=== PATIENT | female | born 1990 | race Caucasian/White ===

== ENCOUNTER 2017-01-21 20:21 | Emergency (ER) | payer OTHER ==
[~2017-01-21] VITALS: Ht 167.6 cm; Wt 67.2 kg
[~2017-01-21 20:21] MED LIST: AMPH30CA3 PO; LISD70CA PO
[2017-01-21 20:24] VITALS: TEMP 36.6; Ht 167.6 cm; Wt 67.2 kg
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
[2017-01-21] MEDS ORDERED: DEXM20CA PO (21:15)
[2017-01-21 21:52] LABS: URINE APPEARANCE CLEAR (CLEAR); URINE BILIRUBIN NEG (NEG); URINE COLOR YELLOW; URINE NITRITE NEG (NEG); URINE PH 7.5 (4.5-7.5); URINE SPECIFIC GRAVITY 1.018 (1.000-1.030); UROBILINOGEN NEG (NEG); ZZUR CULT IF INDIC CLEAN CATCH NO
[2017-01-21 21:52] LABS: HEMATOCRIT 37.9 % (37-47); MEAN CELL VOLUME 87.7 fL (80-100); MEAN CORPUSCULAR HEMOGLOBIN 30.6 pg (25-34); MEAN CORPUSCULAR HGB CONC 34.8 g/dl (32-36); MEAN PLATELET VOLUME 9.2 fL (7.4-10.4); PLATELET COUNT 317 K/uL (130-400); RED BLOOD COUNT 4.32 M/uL (4.2-5.4); WHITE BLOOD COUNT 8.34 K/uL (4.8-10.8)
[2017-01-21 21:54] LABS: MANUAL MICROSCOPIC REQUIRED? NO; REVIEW REQ? NO
[2017-01-21 22:10] LABS: BUN/CREATININE RATIO 14.7 (10-20); CALCIUM 9.9 mg/dl (8.5-10.1); CREATININE 0.74 mg/dl (0.60-1.20); POTASSIUM 3.7 mmol/L (3.5-5.1)
[2017-01-21 22:15] LABS: PREG INTERNAL NEGATIVE QC NEG CLEAR BACKGROUND; PREG INTERNAL POSITIVE QC POS CONTROL LINE
[2017-01-21 22:16] LABS: ACETAMINOPHEN < 2 ug/ml (10-30)
[2017-01-21 22:17] LABS: BENZODIAZEPINE, URINE NEG (NEG); COCAINE,URINE NEG (NEG); PHENCYCLIDINE, URINE NEG (NEG)
[2017-01-21 22:20] LABS: ALB/GLOB RATIO 1.2 (0.9-2); THYROID STIMULATING HORMONE 0.855 uIu/ml (0.300-4.500)
[2017-01-21 22:29] VITALS: BP 134/74; PULSE 85; O2SAT 98
== END 2017-01-21 22:30 | disposition home or self-care (01) ==
LOC: C.EDB 20:22
DX: R45.851 Suicidal ideations (principal); F41.9 Anxiety disorder, unspecified; F90.9 Attention-deficit hyperactivity disorder, unspecified type; L40.9 Psoriasis, unspecified; F17.210 Nicotine dependence, cigarettes, uncomplicated; Z79.899 Other long term (current) drug therapy

== ENCOUNTER 2019-01-08 14:56 | Inpatient (IN) ==
--- OUTSIDE RECORDS SUMMARY | 2019-01-08 15:00 | External Medical Summary | Continuity of Care Document ---
:1990 Author Name Feroz Noble Address Unavailable Unavailable , Care Team Providers Name Role Phone [email or web address] Noble, Himanshu Unavailable Unavailable Unavailable Unavailable Unavailable Problems Anxiety (300.00) (F41.9) Depression (311) (F32.9) Episode of shaking (781.0) (R25.1) Allergies and Adverse Reactions No Known Drug Allergies (Allergy) Medications Wellbutrin XL 300 MG Oral Tablet Extende d Release 24 Hour; TAKE 1 TABLET DAILY WITH A 150 MG TABLET Start: 28-Mar-2015 Quantity: 90 Refills: 0 buPROPion HCl ER (XL) 150 MG Oral Tablet Extended Release 24 Hour; TAKE 1 TABLET DAILY WITH THE 300 MG TABLET DEWAYNE Fontenot Start: 28-Mar-2015 Quantity: 30 Refills: 1 Strattera 25 MG Oral Capsule; TAKE 1 CAPSULE DAILY. Start: 28-Mar-2015 Refills: 0 Betamethasone Dipropionate 0.05 % Dog Food Dough Mixer al Ointment; APPLY SPARINGLY TO AFFECTED AREA(S) TWICE DAILY Start: 28-Mar-2015 Refills: 0 Procedures Procedures not documented Immunizations Immunizations not documented Family History Father Family history of hypertension (V17.49) (Z82.49) Status: Act patti Unknown Family Member Family history of Drug abuse (305.90) Status: Active Co mments: Family History (F19.10) Family history of alcohol abuse (V61.41) Status: Active Comments: Family History (Z81.1) Social History - Smoking Status Current some day smoker Plan of Treatment Planned Observations Planned Goals not documented Results No Known Results Results not documented
[2019-01-08] MEDS ORDERED: SODIUM CHLORIDE 0.9% 1000ML 1,000 ML IV ONE (15:15)
[2019-01-08 15:52] LABS: Basophils # (auto) 0.02 K/uL (0-0.2); Basophils % (auto) 0.2 %; Eosinophils # (auto) 0.03 K/uL (0-0.5); Eosinophils % (auto) 0.3 %; Hematocrit (blood only) 36.4 % (37-47); Hemoglobin 12.6 g/dL (12.0-16.0); Immature Granulocytes # (auto) 0.03 K/uL (0.00-0.02); Immature Granulocytes % (auto) 0.3 %; Lymphocytes # (auto) 1.33 K/uL (1.2-3.4); Lymphocytes % (auto) 13.2 %; Mean Corpuscular Hgb Conc 34.6 g/dL (32-36); Mean Platelet Volume 8.8 fL (7.4-10.4); Monocytes # (auto) 0.63 K/uL (0.11-0.59); Monocytes % (auto) 6.2 %; Neutrophils # (auto) 8.06 K/uL (1.4-6.5); Neutrophils % (auto) 79.8 %; Platelet Count 274 K/uL (130-400); RDW Coefficient of Variation 14.6 % (11.5-14.5); RDW Standard Deviation 49.2 fL (36.4-46.3)
[2019-01-08 15:57] LABS: Appearance Urine Clear (Clear); Bilirubin Urine Negative (Negative); Blood Urine Negative (Negative); Color Urine Yellow; Glucose Urine UA Negative (Negative); Ketones Urine Trace (Negative); Leukocyte Esterase Urine Negative (Negative); Nitrite Urine Negative (Negative); Protein Urine Negative (Negative); Specific Gravity Urine 1.015 (1.000-1.030); Urobilinogen Urine Negative (Negative)
[2019-01-08 16:12] LABS: Albumin Level 3.8 gm/dl (3.4-5.0); BUN Creatinine Ratio 14.9 (10-20); Calcium 8.5 mg/dl (8.5-10.1); Est GFR (African American) 138.6; Est GFR (Non-African American) 119.6; Phosphorus 2.1 mg/dl (2.5-4.9); Potassium 3.7 mmol/L (3.5-5.1)
[2019-01-08 16:18] LABS: Pregnancy Test, Serum Negative (Negative)
[2019-01-08 16:24] LABS: Albumin Globulin Ratio 1.1 (0.9-2); Bilirubin,Total 0.4 mg/dl (0.2-1); Globulin 3.4 gm/dl (2.5-4.0); Total Protein 7.2 gm/dl (6.4-8.2)
[2019-01-08 16:26] LABS: Amphetamines+Metham, Urine Pos (Neg); Barbiturates, Urine Neg (Neg); Benzodiazepine, Urine Neg (Neg); Cocaine, Urine Neg (Neg); MDMA (Ecstacy), Urine Pos (Neg); Methadone, Urine Neg (Neg); Opiate, Urine Neg (Neg); Phencyclidine, Urine Neg (Neg)
--- NOTE | 2019-01-08 16:54 | CT Scan Report ---
CT head/brain wo con CT DOSE: 537.48 mGy.cm HISTORY: Mental status change. Syncope. syncope TECHNIQUE: Multiaxial CT images of the head were performed without the use of intravenous contrast. A dose lowering technique was utilized adhering to the principles of ALARA. Comparison: None. Findings: The paranasal sinuses and mastoid air cells are clear. The calvarium and skull base are int act. The ventricles and sulci are within normal limits. There is no mass, hematoma, midline shift, or acute infarct. Impression: No acute intracranial abnormality. The above report was generated using voice recognition software. It may contain grammatical, syntax or spelling errors. Electronically signed by: Hayder Ashraf M.D. 01/08/2019 4:52 PM
[2019-01-08] MEDS ORDERED: MULTI-VITAMIN INFUSION 10 ML, THIAMINE HCL 100 MG, FOLIC ACID 1 MG in SODIUM CHLORIDE 0... IV STA (18:44)
[2019-01-08] MEDS ORDERED: LORazepam 1 MG/2 ML VIAL IV STA (18:44)
[2019-01-08] MEDS ORDERED: POT PHOSPHATE MONOBASIC W/ SOD TAB PO STA (18:48)
--- NOTE | 2019-01-08 20:06 | Emergency Department Note ---
Entered by Miranda Mauricio acting as a scribe for Clyde Henderson MD History of Present Illness General Chief complaint: Seizure Time Seen by Provider: 01/08/19 15:09 Source: patient History of Present Illness Provider complaint: Syncope Onset (ago): hour(s) 1 Location: head Pain Consistency: + other (Episodic) Maximum Pain Intensity: 0 Quality: + other (syncope) Associated symptoms: + denies other symptoms (Diarrhea), + confusion and + headaches (Resolved); no fever/chills and no nausea/vomiting The patient is a 28 year old female who presents to the Emergency Room with complaints of an episode of syncope that occurred about 1 hour ago. The patient reports that she went to see her probation officers and as she got up from the chair in the waiting room, she fainted. The [employer] senior officer reports he caught the patient as she fell and laid the patient on her side. The probation officers report she was unconscious for about 1-2 minutes and could not answer simple questions. The patient states that she had recently been arrested for a DUI and was feeling anxious after failing her alcohol test. The patient mentioned she has been drinking a half a bottle of liquor a day this summer. The patient reports she had a headache in the ambulance but it has now been resolved. The patient denies any N/V/D, fever, or chills. The patient mentioned this type of episode has happened before but she has never seen a doctor about it. The patient reports she has been on probation for 6 years for falsifying her Adderall prescription. Home Medications Home Medications Medication Instructions Recorded Confirmed Type betamethasone, augmented 1 applic TOPICAL DAILY 01/08/19 01/08/19 History bupropion HCl [Wellbutrin XL] 150 mg PO DAILY 01/08/19 01/08/19 History dextroamphetamine-amphetamine 30 mg PO QAM 01/08/19 01/08/19 History sertraline 100 mg PO DAILY 01/08/19 01/08/19 History Allergies Allergy/AdvReac Type Severity Reaction Status Date / Time No Known Allergies Allergy Unverified 11/09/12 11:05 Past Med/Surg History Medical History Rash (Acute) Family History Other No pertinent family history in first degree relatives Social History Preferred Language: Greenlandic Communication Ability: Effective Chain Puller Required: No Beliefs That Will Affect Care: None Current Living Situation: Other Current Living Situation Comment: roomates Feels Safe at Home: Yes Safety Concerns: Feels Safe At This Time Smoking Status: Current every day smoker Tobacco Type: e-cigarettes ; Do You Dip or Chew Tobacco: No ; Second Hand Exposure: Yes ; Tobacco Cessation Education Requested by Patient: No Hx Alcohol Use: Yes Alcohol type: hard liquor Review of Systems See HPI for pertinent positives & negatives. and A total of 10 systems reviewed and were otherwise negative Physical Exam Vital Signs Vital Signs - 24 hr 01/08/19 14:59 01/08/19 15:01 01/08/19 15:09 Temperature 36.5 C Temperature Source Oral Sepsis Recent Fever Within 48 Hours No Sepsis New/Unexplained Change in Mental Status No Sepsis Action Taken by Nursing No Action Required Pulse Rate 105 H 99 H 96 H Pulse Rate [Apical] Pulse Rate from SpO2 Sensor 106 H 101 H Pulse Rhythm Regular Pulse Rhythm [Apical] Respiratory Rate 33 H 17 16 Respiratory Effort / Characteristics Non-Labored Spontaneous Respiratory Depth Normal Respiratory Pattern Regular Blood Pressure 128/86 128/86 Blood Pressure [Right Arm] Blood Pressure Mean 100 100 Blood Pressure Mean [Right Arm] Pulse Oximetry 97 99 100 Oxygen Delivery Method Room Air 01/08/19 15:10 01/08/19 15:20 01/08/19 15:30 Temperature Temperature Source Sepsis Recent Fever Within 48 Hours Sepsis New/Unexplained Change in Mental Status Sepsis Action Taken by Nursing Pulse Rate 99 H 107 H 94 H Pulse Rate [Apical] Pulse Rate from SpO2 Sensor 101 H 110 H 96 H Pulse Rhythm Pulse Rhythm [Apical] Respiratory Rate 17 14 18 Respiratory Effort / Characteristics Respiratory Depth Respiratory Pattern Blood Pressure Blood Pressure [Right Arm] Blood Pressure Mean Blood Pressure Mean [Right Arm] Pulse Oximetry 99 99 97 Oxygen Delivery Method 01/08/19 15:36 01/08/19 15:40 01/08/19 15:50 Temperature Temperature Source Sepsis Recent Fever Within 48 Hours Sepsis New/Unexplained Change in Mental Status Sepsis Action Taken by Nursing Pulse Rate 108 H 102 H Pulse Rate [Apical] Pulse Rate from SpO2 Sensor 108 H 100 H Pulse Rhythm Pulse Rhythm [Apical] Respiratory Rate 18 21 Respiratory Effort / Characteristics Respiratory Depth Respiratory Pattern Blood Pressure Blood Pressure [Right Arm] Blood Pressure Mean Blood Pressure Mean [Right Arm] Pulse Oximetry 98 99 99 Oxygen Delivery Method Room Air 01/08/19 16:00 01/08/19 16:10 01/08/19 16:20 Temperature Temperature Source Sepsis Recent Fever Within 48 Hours Sepsis New/Unexplained Change in Mental Status Sepsis Action Taken by Nursing Pulse Rate 98 H 110 H 104 H Pulse Rate [Apical] Pulse Rate from SpO2 Sensor Pulse Rhythm Pulse Rhythm [Apical] Respiratory Rate 13 21 21 Respiratory Effort / Characteristics Respiratory Depth Respiratory Pattern Blood Pressure Blood Pressure [Right Arm] Blood Pressure Mean Blood Pressure Mean [Right Arm] Pulse Oximetry Oxygen Delivery Method 01/08/19 16:30 01/08/19 16:40 01/08/19 16:54 Temperature Temperature Source Sepsis Recent Fever Within 48 Hours Sepsis New/Unexplained Change in Mental Status Sepsis Action Taken by Nursing Pulse Rate 99 H 99 H 97 H Pulse Rate [Apical] Pulse Rate from SpO2 Sensor Pulse Rhythm Pulse Rhythm [Apical] Respiratory Rate 15 19 21 Respiratory Effort / Characteristics Respiratory Depth Respiratory Pattern Blood Pressure Blood Pressure [Right Arm] Blood Pressure Mean Blood Pressure Mean [Right Arm] Pulse Oximetry Oxygen Delivery Method 01/08/19 17:00 01/08/19 17:08 01/08/19 17:10 Temperature Temperature Source Sepsis Recent Fever Within 48 Hours Sepsis New/Unexplained Change in Mental Status Sepsis Action Taken by Nursing Pulse Rate 102 H 89 88 Pulse Rate [Apical] 100 H Pulse Rate from SpO2 Sensor 105 H 93 H 88 Pulse Rhythm Pulse Rhythm [Apical] Regular Respiratory Rate 15 20 24 Respiratory Effort / Characteristics Non-Labored Spontaneous Respiratory Depth Normal Respiratory Pattern Regular Blood Pressure 132/84 Blood Pressure [Right Arm] 132/84 Blood Pressure Mean 100 Blood Pressure Mean [Right Arm] 100 Pulse Oximetry 99 99 98 Oxygen Delivery Method Room Air 01/08/19 17:20 01/08/19 17:24 01/08/19 17:30 Temperature Temperature Source Sepsis Recent Fever Within 48 Hours Sepsis New/Unexplained Change in Mental Status Sepsis Action Taken by Nursing Pulse Rate 106 H 89 108 H Pulse Rate [Apical] Pulse Rate from SpO2 Sensor 106 H 88 107 H Pulse Rhythm Pulse Rhythm [Apical] Respiratory Rate 20 24 19 Respiratory Effort / Characteristics Respiratory Depth Respiratory Pattern Blood Pressure 132/84 119/80 Blood Pressure [Right Arm] Blood Pressure Mean 100 93 Blood Pressure Mean [Right Arm] Pulse Oximetry 99 98 100 Oxygen Delivery Method 01/08/19 17:40 01/08/19 17:50 01/08/19 18:00 Temperature Temperature Source Sepsis Recent Fever Within 48 Hours Sepsis New/Unexplained Change in Mental Status Sepsis Action Taken by Nursing Pulse Rate 98 H 104 H 97 H Pulse Rate [Apical] Pulse Rate from SpO2 Sensor 93 H 103 H 95 H Pulse Rhythm Pulse Rhythm [Apical] Respiratory Rate 21 20 14 Respiratory Effort / Characteristics Respiratory Depth Respiratory Pattern Blood Pressure 128/89 Blood Pressure [Right Arm] Blood Pressure Mean 102 Blood Pressure Mean [Right Arm] Pulse Oximetry 98 100 100 Oxygen Delivery Method 01/08/19 18:01 01/08/19 18:10 01/08/19 18:20 Temperature Temperature Source Sepsis Recent Fever Within 48 Hours Sepsis New/Unexplained Change in Mental Status Sepsis Action Taken by Nursing Pulse Rate 99 H 93 H 83 Pulse Rate [Apical] Pulse Rate from SpO2 Sensor 94 H 91 H 82 Pulse Rhythm Pulse Rhythm [Apical] Respiratory Rate 20 20 16 Respiratory Effort / Characteristics Respiratory Depth Respiratory Pattern Blood Pressure Blood Pressure [Right Arm] Blood Pressure Mean Blood Pressure Mean [Right Arm] Pulse Oximetry 99 100 98 Oxygen Delivery Method 01/08/19 18:30 01/08/19 18:40 01/08/19 18:50 Temperature Temperature Source Sepsis Recent Fever Within 48 Hours Sepsis New/Unexplained Change in Mental Status Sepsis Action Taken by Nursing Pulse Rate 94 H 107 H 96 H Pulse Rate [Apical] Pulse Rate from SpO2 Sensor 93 H 109 H 94 H Pulse Rhythm Pulse Rhythm [Apical] Respiratory Rate 15 32 H 19 Respiratory Effort / Characteristics Respiratory Depth Respiratory Pattern Blood Pressure 132/97 Blood Pressure [Right Arm] Blood Pressure Mean 108 Blood Pressure Mean [Right Arm] Pulse Oximetry 100 100 98 Oxygen Delivery Method 01/08/19 19:00 01/08/19 19:01 01/08/19 19:30 Temperature Temperature Source Sepsis Recent Fever Within 48 Hours Sepsis New/Unexplained Change in Mental Status Sepsis Action Taken by Nursing Pulse Rate 91 H 104 H 106 H Pulse Rate [Apical] Pulse Rate from SpO2 Sensor 93 H 102 H 105 H Pulse Rhythm Pulse Rhythm [Apical] Respiratory Rate 22 22 27 H Respiratory Effort / Characteristics Respiratory Depth Respiratory Pattern Blood Pressure 149/98 H 146/86 H Blood Pressure [Right Arm] Blood Pressure Mean 115 106 Blood Pressure Mean [Right Arm] Pulse Oximetry 99 99 99 Oxygen Delivery Method 01/08/19 20:00 01/08/19 20:01 01/08/19 20:30 Temperature Temperature Source Sepsis Recent Fever Within 48 Hours Sepsis New/Unexplained Change in Mental Status Sepsis Action Taken by Nursing Pulse Rate 82 92 H 88 Pulse Rate [Apical] Pulse Rate from SpO2 Sensor Pulse Rhythm Pulse Rhythm [Apical] Respiratory Rate 22 20 Respiratory Effort / Characteristics Respiratory Depth Respiratory Pattern Blood Pressure 148/83 H 138/87 Blood Pressure [Right Arm] Blood Pressure Mean 104 104 Blood Pressure Mean [Right Arm] Pulse Oximetry Oxygen Delivery Method 01/08/19 21:00 Temperature Temperature Source Sepsis Recent Fever Within 48 Hours Sepsis New/Unexplained Change in Mental Status Sepsis Action Taken by Nursing Pulse Rate 80 Pulse Rate [Apical] Pulse Rate from SpO2 Sensor Pulse Rhythm Pulse Rhythm [Apical] Respiratory Rate 16 Respiratory Effort / Characteristics Respiratory Depth Respiratory Pattern Blood Pressure 150/65 H Blood Pressure [Right Arm] Blood Pressure Mean 93 Blood Pressure Mean [Right Arm] Pulse Oximetry Oxygen Delivery Method GENERAL: Awake, alert, anxious-appearing, in no distress HENT: Normocephalic, atraumatic. Oropharynx with dry mucous membranes and otherwise unremarkable. EYES: Normal conjunctiva. Sclera non-icteric. EOMI. No nystamgus. PEARRL. NECK: Supple. No nuchal rigidity. FROM. No JVD. RESPIRATORY: Clear to auscultation bilaterally. CARDIAC: Regular rate, normal rhythm. Extremities warm and well perfused. Pulses equal. ABDOMEN: Soft, non-distended. No tenderness to palpation. No rebound or guarding. No masses. RECTAL: Deferred. MUSCULOSKELETAL: Chest examination reveals no tenderness. The back is symm etrical on inspection without obvious abnormality. There is no CVA tenderness to palpation. No joint edema. LOWER EXTREMITIES: Calves are equal size bilaterally and non-tender. No edema. No discoloration. NEURO: Normal sensorium. No sensory or motor deficits noted. Mildly tremulous. 5/5 strength and SILT x 4 extremities. Cerebellar function intact including [id number], alternating palms, [id number]. SKIN: No rash or jaundice noted. Course 1557: Past medical records reviewed. The patient was evaluated in room B03. A complete history and physical exam was performed. 1735: Upon reevaluation, the patient is resting comfortably. I discussed findings and results with her. She verbalized agreement of the treatment plan. 1745: I spoke with Dr. Alem Archuleta Hospitalist about the patient's case. He will accept the patient for further evaluation. Consultations Consultation #1: I spoke with Dr. Alem Archuleta Hospitalist about the patient's case. He will accept the patient for further evaluation. Time: 17:45 Administered Medications Chlordiazepoxide HCl (Librium) 50 mg PO Q6H MERYL; Taper Stop: 01/11/19 23:59 Last Admin: 01/08/19 23:24 Dose: 50 mg Documented by: [id number] Sodium Chloride (Nss 1000ml) 1,000 mls @ 125 mls/hr IV .Q8H MERYL Stop: 02/07/19 22:30 Last Admin: 01/08/19 23:24 Dose: 125 mls/hr Documented by: [id number] Lorazepam (Ativan) 1 mg in 2 mls @ 2 mls/min IV UD PRN; Protocol PRN Reason: EtOH Withdrawl AWSS Score 6,7 Stop: 02/07/19 22:30 Last Admin: 01/08/19 23:25 Dose: 2 mls/min Documented by: [id number] Discontinued Medications Sodium Chloride (Nss 1000ml) 1,000 mls @ 999 mls/hr IV .Q1H1M ONE Stop: 01/08/19 16:15 Last Infusion: 01/08/19 16:59 Dose: 0 mls/hr Documented by: [id number] Admin: 01/08/19 15:57 Dose: 999 mls/hr Documented by: [id number] Multivitamins 10 ml/ Thiamine HCl 100 mg/ Folic Acid 1 mg/Sodium Chloride 1,011.2 mls @ 1,011.2 mls/hr IV .Q1H STA Stop: 01/08/19 19:43 Last Infusion: 01/08/19 20:48 Dose: 0 mls/hr Documented by: [id number] Admin: 01/08/19 19:46 Dose: 1,011.2 mls/hr Documented by: [id number] Lorazepam (Ativan) 1 mg in 2 mls @ 2 mls/min IV NOW STA Stop: 01/08/19 18:45 Last Admin: 01/08/19 18:55 Dose: 2 mls/min Documented by: [id number] Potassium Phosphate (Phospha 250 Neutral 155-852-130 Mg) 2 tab PO NOW STA Stop: 01/08/19 18:49 Last Admin: 01/08/19 19:06 Dose: 2 tab Documented by: [id number] Medical Decision Making Differential Diagnosis Differential diagnosis includes etiologies such as infection, hypoglycemia, electrolyte abnormalities, cardiac sources, intracerebral event, trauma, toxi cologic, neurologic, as well as others were entertained. Medical Records Attestation: I reviewed the patient's medical records. Home Medications Current Medication List: was personally reviewed by me Laboratory Data Attestation: I reviewed the patient's lab results. Result diagrams: 01/08/19 15:38 01/08/19 15:38 Lab Results 01/08/19 01/08/19 01/08/19 Range/Units 15:38 15:38 15:38 WBC 10.10 (4.8-10.8) K/uL RBC 4.00 L (4.2-5.4) M/uL Hgb 12.6 (12.0-16.0) g/dL Hct 36.4 L (37-47) % MCV 91.0 (80-100) fL MCH 31.5 (25-34) pg MCHC 34.6 (32-36) g/dL RDW Std Deviation 49.2 H (36.4-46.3) fL RDW Coeff of Matt 14.6 H (11.5-14.5) % Plt Count 274 (130-400) K/uL MPV 8.8 (7.4-10.4) fL Immature Gran % (Auto) 0.3 % Neut % (Auto) 79.8 % Lymph % (Auto) 13.2 % Dickens % (Auto) 6.2 % Eos % (Auto) 0.3 % Baso % (Auto) 0.2 % Immature Gran # (Auto) 0.03 H (0.00-0.02) K/uL Neut # (Auto) 8.06 H (1.4-6.5) K/uL Lymph # (Auto) 1.33 (1.2-3.4) K/uL Dickens # (Auto) 0.63 H (0.11-0.59) K/uL Eos # (Auto) 0.03 (0-0.5) K/uL Baso # (Auto) 0.02 (0-0.2) K/uL Sodium Cancelled 136 Potassium Cancelled 3.7 Chloride Cancelled 101 Carbon Dioxide Cancelled 26 Anion Gap Cancelled 9.0 BUN Cancelled 10 Creatinine Cancelled 0.70 Est Cr Clr Drug Dosing Cancelled 114.0 Est GFR ( Amer) Cancelled 138.6 Est GFR (Non-Af Amer) Cancelled 119.6 BUN/Creatinine Ratio Cancelled 14.9 Glucose Cancelled 96 Calcium Cancelled 8.5 Phosphorus 2.1 L (2.5-4.9) mg/dl Magnesium 2.0 (1.8-2.4) mg/dl Total Bilirubin Cancelled 0.4 AST Cancelled 43 H ALT Cancelled 72 Alkaline Phosphatase Cancelled 65 Total Protein Cancelled 7.2 Albumin Cancelled 3.8 Globulin Cancelled 3.4 Albumin/Globulin Ratio Cancelled 1.1 Lipase Cancelled 95 TSH 1.290 (0.300-4.500) uIu/ml HCG, Qual (Negative) Urine Color Urine Appearance (Clear) Urine pH (4.5-7.5) Ur Specific Manning (1.000-1.030) Urine Protein (Negative) Urine Glucose (UA) (Negative) Urine Ketones (Negative) Urine Blood (Negative) Urine Nitrite (Negative) Urine Bilirubin (Negative) Urine Urobilinogen (Negative) Ur Leukocyte Esterase (Negative) Urine Opiates Screen (Neg) Ur Methadone, Qual (Neg) Urine Barbiturates (Neg) Ur Phencyclidine (PCP) (Neg) U Amphetamin/Meth Scrn (Neg) MDMA (Ecstasy) Screen (Neg) U Benzodiazepines Scrn (Neg) Ur Cocaine Metabolite (Neg) U Marijuana (THC) Screen (Neg) Ethyl Alcohol mg/dL (0-3) mg/dl 01/08/19 01/08/19 01/08/19 Range/Units 15:38 15:38 15:39 WBC (4.8-10.8) K/uL RBC (4.2-5.4) M/uL Hgb (12.0-16.0) g/dL Hct (37-47) % MCV (80-100) fL MCH (25-34) pg MCHC (32-36) g/dL RDW Std Deviation (36.4-46.3) fL RDW Coeff of Matt (11.5-14.5) % Plt Count (130-400) K/uL MPV (7.4-10.4) fL Immature Gran % (Auto) % Neut % (Auto) % Lymph % (Auto) % Dickens % (Auto) % Eos % (Auto) % Baso % (Auto) % Immature Gran # (Auto) (0.00-0.02) K/uL Neut # (Auto) (1.4-6.5) K/uL Lymph # (Auto) (1.2-3.4) K/uL Dickens # (Auto) (0.11-0.59) K/uL Eos # (Auto) (0-0.5) K/uL Baso # (Auto) (0-0.2) K/uL Sodium Potassium Chloride Carbon Dioxide Anion Gap BUN Creatinine Est Cr Clr Drug Dosing Est GFR ( Amer) Est GFR (Non-Af Amer) BUN/Creatinine Ratio Glucose Calcium Phosphorus (2.5-4.9) mg/dl Magnesium (1.8-2.4) mg/dl Total Bilirubin AST ALT Alkaline Phosphatase Total Protein Albumin Globulin Albumin/Globulin Ratio Lipase TSH (0.300-4.500) uIu/ml HCG, Qual Negative (Negative) Urine Color Urine Appearance (Clear) Urine pH (4.5-7.5) Ur Specific Manning (1.000-1.030) Urine Protein (Negative) Urine Glucose (UA) (Negative) Urine Ketones (Negative) Urine Blood (Negative) Urine Nitrite (Negative) Urine Bilirubin (Negative) Urine Urobilinogen (Negative) Ur Leukocyte Esterase (Negative) Urine Opiates Screen Neg (Neg) Ur Methadone, Qual Neg (Neg) Urine Barbiturates Neg (Neg) Ur Phencyclidine (PCP) Neg (Neg) U Amphetamin/Meth Scrn Pos H (Neg) MDMA (Ecstasy) Screen Pos H (Neg) U Benzodiazepines Scrn Neg (Neg) Ur Cocaine Metabolite Neg (Neg) U Marijuana (THC) Screen Neg (Neg) Ethyl Alcohol mg/dL < 3.0 (0-3) mg/dl 01/08/19 Range/Units 15:39 WBC (4.8-10.8) K/uL RBC (4.2-5.4) M/uL Hgb (12.0-16.0) g/dL Hct (37-47) % MCV (80-100) fL MCH (25-34) pg MCHC (32-36) g/dL RDW Std Deviation (36.4-46.3) fL RDW Coeff of Matt (11.5-14.5) % Plt Count (130-400) K/uL MPV (7.4-10.4) fL Immature Gran % (Auto) % Neut % (Auto) % Lymph % (Auto) % Dickens % (Auto) % Eos % (Auto) % Baso % (Auto) % Immature Gran # (Auto) (0.00-0.02) K/uL Neut # (Auto) (1.4-6.5) K/uL Lymph # (Auto) (1.2-3.4) K/uL Dickens # (Auto) (0.11-0.59) K/uL Eos # (Auto) (0-0.5) K/uL Baso # (Auto) (0-0.2) K/uL Sodium Potassium Chloride Carbon Dioxide Anion Gap BUN Creatinine Est Cr Clr Drug Dosing Est GFR ( Amer) Est GFR (Non-Af Amer) BUN/Creatinine Ratio Glucose Calcium Phosphorus (2.5-4.9) mg/dl Magnesium (1.8-2.4) mg/dl Total Bilirubin AST ALT Alkaline Phosphatase Total Protein Albumin Globulin Albumin/Globulin Ratio Lipase TSH (0.300-4.500) uIu/ml HCG, Qual (Negative) Urine Color Yellow Urine Appearance Clear (Clear) Urine pH 7.0 (4.5-7.5) Ur Specific Manning 1.015 (1.000-1.030) Urine Protein Negative (Negative) Urine Glucose (UA) Negative (Negative) Urine Ketones Trace H (Negative) Urine Blood Negative (Negative) Urine Nitrite Negative (Negative) Urine Bilirubin Negative (Negative) Urine Urobilinogen Negative (Negative) Ur Leukocyte Esterase Negative (Negative) Urine Opiates Screen (Neg) Ur Methadone, Qual (Neg) Urine Barbiturates (Neg) Ur Phencyclidine (PCP) (Neg) U Amphetamin/Meth Scrn (Neg) MDMA (Ecstasy) Screen (Neg) U Benzodiazepines Scrn (Neg) Ur Cocaine Metabolite (Neg) U Marijuana (THC) Screen (Neg) Ethyl Alcohol mg/dL (0-3) mg/dl Imaging Data Radiologist's Impression: Radiology results as stated below per my review and the radiologist's interpretation: CT head/brain wo con CT DOSE: 537.48 mGy.cm HISTORY: Mental status change. Syncope. syncope TECHNIQUE: Multiaxial CT images of the head were performed without the use of intravenous contrast. A dose lowering technique was utilized adhering to the principles of ALARA. Comparison: None. Findings: The paranasal sinuses and mastoid air cells are clear. The calvarium and skull base are intact. The ventricles and sulci are within normal limits. There is no mass, hematoma, midline shift, or acute infarct. Impression: No acute intracranial abnormality. The above report was generated using voice recognition software. It may contain grammatical, syntax or spelling errors. Electronically signed by: Hayder Ashraf M.D. 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 Of note the patient's history of alcohol abuse was initially not disclosed by the patient and she reported more a history of seizure-like episodes but never having followed with a doctor for them. Upon discussing the patient's case with her [employer] senior officer is outside of the room patient did speak more freely and admitted that she has been drinking alcohol regularly and heavily, in particular this summer with at least a half bottle of vodka daily. She reports continued to drink despite her DUI last month. Additionally she reports she did drink alcohol last night but did not today as she knew she would be having her drug test. While the patient apparently did test positive at her drug test her level was undetectable today which is consistent with the patient's story. Additionally this raises a suspicion for possibility of alcohol withdrawal seizure. When discussing the patient's prior seizure-like episodes she reports a similar instance when she had been drinking heavily but abruptly stopped for a day. On arrival patient is anxious appearing and mildly tremulous but no acute distress, afebrile stable vital signs. On exam the patient appears clinically dry. WBC, hemoglobin, platelets within normal limits. Chemistry without acidosis. Phosphorus slightly low at 2.[address] head negative. Given the patient's symptoms are highly suggestive of alcohol withdrawal and possibility of alcohol withdrawal seizure reasonable to admit the patient for further management. The patient is interested in complete detox and is agreeable to plan for admission. Case d/w Dr. Juarez, [facility] hospitalist, who will evaluate the patient for admission. Impression & Plan Alcohol withdrawal, Witnessed seizure-like activity Discharge Plan Visit Data *Final* Discharge Date/Time: 01/08/19 22:30 Chief Complaint: Seizure ED Provider: Clyde Henderson Discharge Problem: Alcohol withdrawal, Witnessed seizure-like activity Patient Disposition: Admitted As Inpatient Discharge Instructions Interventions: ED Discharge Assessment Last Done: 01/08/19 22:30 Discharge Problem: Alcohol withdrawal Qualifiers: Complication of substance-induced condition: with unspecified complication Qualified Code(s): F10.239 - Alcohol dependence with withdrawal, unspecified The scribe's documentation has been prepared under my direction and personally reviewed by me in its entirety. I confirm that the note above accurately reflects all work, treatment, procedures, and medical decision making performed by me.
[2019-01-08] MEDS ORDERED: ONDANSETRON INJ 2 MG/ML 2 ML VIAL IV PRN (22:31)
[2019-01-08] MEDS ORDERED: chlordiazePOXIDE ALCOHOL WITHDRAWL 50MG PO STA (22:31)
[2019-01-08] MEDS ORDERED: LORazepam 3 MG/6 ML VIAL IV PRN (22:31)
[2019-01-08] MEDS ORDERED: LORazepam 1 MG/2 ML VIAL IV PRN ×2 (22:31)
[2019-01-08] MEDS ORDERED: ACETAMINOPHEN 325 MG TAB PO PRN (22:31)
[2019-01-08] MEDS ORDERED: ATIVAN IV ALCOHOL WITHDRAWL IV SCH (22:31)
[2019-01-08] MEDS ORDERED: LORazepam 2 MG/4 ML VIAL IV PRN (22:31)
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
[2019-01-08] MEDS: SODIUM CHLORIDE 0.9% 1000ML 1,000 ML IV SCH (23:24)
[2019-01-08] MEDS: chlordiazePOXIDE HCl 25 MG CAP PO SCH (23:24)
[2019-01-09] MEDS: chlordiazePOXIDE HCl 25 MG CAP PO SCH ×2 (06:23→12:06)
[2019-01-09] MEDS: SODIUM CHLORIDE 0.9% 1000ML 1,000 ML IV SCH (06:23)
[2019-01-09 07:02] LABS: Basophils # (auto) 0.01 K/uL (0-0.2); Basophils % (auto) 0.2 %; Eosinophils # (auto) 0.08 K/uL (0-0.5); Eosinophils % (auto) 1.4 %; Hematocrit (blood only) 30.1 % (37-47); Hemoglobin 10.1 g/dL (12.0-16.0); Immature Granulocytes # (auto) 0.01 K/uL (0.00-0.02); Immature Granulocytes % (auto) 0.2 %; Lymphocytes # (auto) 1.88 K/uL (1.2-3.4); Lymphocytes % (auto) 34.1 %; Mean Corpuscular Hgb Conc 33.6 g/dL (32-36); Mean Corpuscular Volume 92.6 fL (80-100); Mean Platelet Volume 9.4 fL (7.4-10.4); Monocytes # (auto) 0.55 K/uL (0.11-0.59); Neutrophils # (auto) 2.99 K/uL (1.4-6.5); Neutrophils % (auto) 54.1 %; Platelet Count 212 K/uL (130-400); RDW Coefficient of Variation 14.8 % (11.5-14.5); RDW Standard Deviation 50.3 fL (36.4-46.3); Red Blood Count 3.25 M/uL (4.2-5.4); White Blood Count 5.52 K/uL (4.8-10.8)
[2019-01-09 07:34] LABS: Alanine Aminotransferase 52 U/L (12-78); Albumin Level 2.9 gm/dl (3.4-5.0); Aspartate Aminotransferase 28 U/L (15-37); BUN Creatinine Ratio 13.9 (10-20); Blood Urea Nitrogen 8 mg/dl (7-18); Calcium 7.7 mg/dl (8.5-10.1); Carbon Dioxide 24 mmol/L (21-32); Chloride 110 mmol/L (98-107); Creatinine Clr Calc Pharmacy 145.1 ml/min; Est GFR (African American) > 150.0; Est GFR (Non-African American) 129.5; Glucose 80 mg/dl (70-99); Potassium 3.6 mmol/L (3.5-5.1); Sodium 140 mmol/L (136-145)
[2019-01-09 07:43] LABS: Alkaline Phosphatase 45 U/L (45-117); Bilirubin,Total 0.5 mg/dl (0.2-1); Folate (Folic Acid) 23.44 ng/ml (>5.38); Globulin 2.8 gm/dl (2.5-4.0); Total Protein 5.7 gm/dl (6.4-8.2)
[2019-01-09] MEDS ORDERED: THIAMINE HCL 100 MG in SYRINGE 9 ML IV SCH (09:00)
[2019-01-09] MEDS ORDERED: SERTRALINE HCL 100 MG TABLET PO SCH (09:00)
[2019-01-09] MEDS ORDERED: BETAMETHASONE DIP AUG 0.05% OINT 15 GM TUBE TOP SCH (09:00)
[2019-01-09] MEDS ORDERED: BuPROPion XL 150 MG TABCR PO SCH (09:00)
[2019-01-09] MEDS ORDERED: FOLIC ACID 1 MG in SYRINGE 9.8 ML IV SCH (09:00)
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
[2019-01-11 09:26] LABS: Amphetamine Urine, Confirm 11400 NG/ML (CUTOFF=250); Methamphetamine, Ur Confirm NEGATIVE NG/ML (CUTOFF=250)
== END 2019-01-09 17:00 | disposition home or self-care (01) | DRG 101 ==
LOC: ED 14:56 → SUATTDRO 21:26 → 2S 21:26
DX: E83.39 Other disorders of phosphorus metabolism; F90.9 Attention-deficit hyperactivity disorder, unspecified type; F10.239 Alcohol dependence with withdrawal, unspecified; R56.9 Unspecified convulsions; F41.9 Anxiety disorder, unspecified; F17.290 Nicotine dependence, other tobacco product, uncomplicated